=== PATIENT | female | born 1990 | race Caucasian/White ===

== ENCOUNTER 2017-08-29 05:17 | Emergency (ER) | payer OTHER ==
[~2017-08-29] VITALS: Ht 165.1 cm; Wt 56.7 kg
== END 2017-08-29 08:16 | disposition home or self-care (01) ==
LOC: ER 05:17
DX: S61.012A Laceration without foreign body of left thumb without damage to nail, initial encounter (principal); F17.200 Nicotine dependence, unspecified, uncomplicated; W26.0XXA Contact with knife, initial encounter
CPT/HCPCS: 12001; 99283

== ENCOUNTER → 2022-12-13 | Outpatient (CLI) | payer BC | END | disposition home or self-care (01) | LOC: LAB 17:20 → LAB SHORT 17:20 | DX: O09.93 Supervision of high risk pregnancy, unspecified, third trimester (principal) | CPT/HCPCS: 87081; 87150 ==

== ENCOUNTER 2023-01-06 18:21 | Inpatient (IN) | payer BC ==
[2023-01-06] VITALS (29 sets, daily range): BP systolic 66–182; BP diastolic 36–95
[~2023-01-06] VITALS: Ht 165.1 cm; Wt 86.3 kg
[2023-01-06 20:45] LABS: Hematocrit 34.4 % (33.0-51.0); Hemoglobin 11.4 g/dL (11.5-16.0); Mean Corpuscular HGB 29.2 pg (26.0-34.0); Mean Corpuscular HGB Conc 33.1 g/dL (31.5-36.5); Mean Corpuscular Volume 88 fL (80-100); Mean Platelet Volume 12.5 fL (9.1-12.4); Platelet Count 202 K/mm3 (150-400); RDW Coefficient Variation 14.2 % (11.7-14.2); RDW Standard Deviation 45.4 fL (35.1-46.3); Red Blood Cell Count 3.91 M/mm3 (3.80-5.20)
[2023-01-06 21:06] LABS: Albumin, Blood 2.3 g/dL (3.4-5.0); Albumin/Globulin Ratio 0.7 (0.8-1.8); Bilirubin, Total 0.2 mg/dL (0.1-1.0); Bun/Creatinine Ratio 19.5 (12.0-20.0); Calcium, Blood 8.4 mg/dL (8.5-10.1); Creatinine, Blood 0.56 mg/dL (0.40-1.00); Globulin, Blood 3.5 g/dL (2.2-4.0); Potassium, Blood 4.1 mmol/L (3.5-5.5); Total Protein, Blood 5.8 g/dL (6.4-8.2)
[2023-01-06 21:18] LABS: BAND PERCENT MAN 2 % (0-8); BASOPHILS PERCENT MAN 0 % (0-2); EOSINOPHILS PERCENT MAN 0 % (0-6); LYMPHOCYTES PERCENT MAN 11 % (21-46); MONOCYTES PERCENT MAN 4 % (4-13); MYELOCYTE PERCENT MAN 2 % (0-0); SEG NEUTROPHILS PERCENT MAN 81 % (41-73); TOTAL CELLS COUNTED 100
[2023-01-06 21:20] LABS: BASOPHILS ABSOLUTE AUTO 0.01 K/mm3 (0.00-0.23); BASOPHILS PERCENT AUTO 0 % (0-2); EOSINOPHILS ABSOLUTE AUTO 0.01 K/mm3 (0.00-0.68); EOSINOPHILS PERCENT AUTO 0 % (0-6); IMMATURE GRAN ABSOLUTE AUTO 0.14 K/mm3 (0.00-0.10); IMMATURE GRAN PERCENT AUTO 1 % (0-1); LYMPHOCYTES ABSOLUTE AUTO 1.31 K/mm3 (0.84-5.20); LYMPHOCYTES PERCENT AUTO 13 % (21-46); MONOCYTES ABSOLUTE AUTO 0.44 K/mm3 (0.16-1.47); MONOCYTES PERCENT AUTO 4 % (4-13); NEUTROPHILS ABSOLUTE AUTO 8.22 K/mm3 (1.96-9.15); NEUTROPHILS PERCENT AUTO 81 % (41-73); White Blood Cell Count 10.13 K/mm3 (4.00-11.30)
[2023-01-06] MEDS ORDERED: PNV TABS 20-11 EACH PO (21:37)
[2023-01-06] MEDS ORDERED: SERT25 PO (21:37)
[2023-01-06 21:41] LABS: Creatinine, Urine Random 59.7 mg/dL (27.00-270.00); Protein, Urine Random 15.8 mg/dL (0.0-11.9); Protein/Creat Ratio, Ur Random 0.3
[2023-01-07] VITALS (30 sets, daily range): BP systolic 95–141; BP diastolic 54–78
[2023-01-07] MEDS ORDERED: IBUP800 (07:32)
--- NOTE | 2023-01-07 10:39 | NUR ---
RT STOOD BY FOR DELIVERY DUE TO LIGHT MECONIUM. BABY WAS DELIVERED TO MOTHERS CHEST, DRIED AND STIMULATED AND STRONG CRY NOTED. RT EXCUSED, RN TO CALL RT IF NEEDED.
--- NOTE | 2023-01-07 17:16 | NUR ---
REPORT RECEIVED FROM BOLA DAVIS AND ASSUMED CARE OF PT AT 1630.
[2023-01-08 07:44] VITALS: BP 115/82
--- NOTE | 2023-01-08 13:54 | NUR ---
0129 DISCHARGED TO HOME WITH INSTRUCTIONS. PATIENT AND S/O VERBALIZED UNDERSTANDING
== END 2023-01-08 13:28 | disposition home or self-care (01) | DRG 807 ==
LOC: OBS 18:21 → BC 18:25 → OBS 20:13 → BC 20:14
PROVIDERS: ADMIT Advanced Practice Midwife
PROC: 10E0XZZ Delivery of Products of Conception, External Approach (ICD-10-PCS; principal; 2023-01-07)
PROC: 3E0R3BZ Introduction of Anesthetic Agent into Spinal Canal, Percutaneous Approach (ICD-10-PCS; 2023-01-07)
PROC: 00HU33Z Insertion of Infusion Device into Spinal Canal, Percutaneous Approach (ICD-10-PCS; 2023-01-07)
PROC: 0UQGXZZ Repair Vagina, External Approach (ICD-10-PCS; 2023-01-07)
DX: O48.0 Post-term pregnancy (principal); Z37.0 Single live birth; O99.344 Other mental disorders complicating childbirth; F41.8 Other specified anxiety disorders; O99.334 Smoking (tobacco) complicating childbirth; F17.210 Nicotine dependence, cigarettes, uncomplicated; O14.94 Unspecified pre-eclampsia, complicating childbirth; O13.4 Gestational [pregnancy-induced] hypertension without significant proteinuria, complicating childbirth; O77.0 Labor and delivery complicated by meconium in amniotic fluid; O70.0 First degree perineal laceration during delivery; Z3A.41 41 weeks gestation of pregnancy
CPT/HCPCS: 36415; 51702; 59025; 80053; 82570; 84156; 85025; 86850; 86900; 86901; A9270; J1885; J2270; J2590; J7120

== ENCOUNTER → 2023-03-02 | Outpatient (CLI) | payer BC ==
[~2023-03-02] MED LIST: IBUP800; PNV TABS 20-11 EACH PO; SERT25 PO
[2023-03-02 18:41] LABS: BASOPHILS ABSOLUTE AUTO 0.04 K/mm3 (0.00-0.23); BASOPHILS PERCENT AUTO 1 % (0-2); EOSINOPHILS ABSOLUTE AUTO 0.11 K/mm3 (0.00-0.68); EOSINOPHILS PERCENT AUTO 2 % (0-6); Hematocrit 41.1 % (33.0-51.0); Hemoglobin 13.6 g/dL (11.5-16.0); IMMATURE GRAN ABSOLUTE AUTO 0.01 K/mm3 (0.00-0.10); IMMATURE GRAN PERCENT AUTO 0 % (0-1); LYMPHOCYTES PERCENT AUTO 31 % (21-46); MONOCYTES ABSOLUTE AUTO 0.44 K/mm3 (0.16-1.47); MONOCYTES PERCENT AUTO 6 % (4-13); Mean Corpuscular HGB 28.9 pg (26.0-34.0); Mean Corpuscular HGB Conc 33.1 g/dL (31.5-36.5); Mean Corpuscular Volume 87 fL (80-100); Mean Platelet Volume 11.4 fL (9.1-12.4); NEUTROPHILS ABSOLUTE AUTO 4.22 K/mm3 (1.96-9.15); NEUTROPHILS PERCENT AUTO 60 % (41-73); Platelet Count 277 K/mm3 (150-400); RDW Coefficient Variation 12.7 % (11.7-14.2); RDW Standard Deviation 40.4 fL (35.1-46.3); Red Blood Cell Count 4.71 M/mm3 (3.80-5.20); White Blood Cell Count 7.02 K/mm3 (4.00-11.30)
[2023-03-04 00:06] LABS: CHLAMYDIA TRACHOMATIS, NAA Negative (Negative)
== END | disposition home or self-care (01) ==
LOC: LAB SHORT 16:57 → LAB 16:57
PROVIDERS: Advanced Practice Midwife
DX: Z11.3 Encounter for screening for infections with a predominantly sexual mode of transmission (principal); R53.83 Other fatigue
CPT/HCPCS: 82306; 84443; 85025; 87491; 87591

== ENCOUNTER 2024-10-16 12:52 | Observation (INO) | payer SELFPAY ==
[~2024-10-16] VITALS: Ht 165.1 cm; Wt 67.7 kg
[2024-10-16 14:08] LABS: Source, Urine Clean Catch
[2024-10-16 14:19] LABS: Appearance, Urine Clear (Clear); Bilirubin, Urine Neg (Neg); Blood, Urine 4+ (Neg); Color, Urine Yellow (P-Yellow); Glucose Qualitative, Urine Neg (Neg); Ketones, Urine Neg (Neg); Leukocyte Esterase, Urine Neg (Neg); Nitrite, Urine Neg (Neg); Protein, Urine 1+ (Neg); Specific Gravity, Urine 1.025 (1.003-1.022); Urobilinogen, Urine NORM (Normal)
[2024-10-16 14:33] LABS: Albumin, Blood 3.6 g/dL (3.4-5.0); Albumin/Globulin Ratio 1.3 (0.8-1.8); Bilirubin, Total 0.3 mg/dL (0.1-1.0); Bun/Creatinine Ratio 26.2 (12.0-20.0); Calcium, Blood 8.8 mg/dL (8.5-10.1); Creatinine, Blood 0.5 mg/dL (0.40-1.00); Globulin, Blood 2.8 g/dL (2.2-4.0); Potassium, Blood 4.3 mmol/L (3.5-5.5); Total Protein, Blood 6.4 g/dL (6.4-8.2)
[2024-10-16 14:42] LABS: Bacteria Not Seen /hpf; Mucus Light (0-Heavy); Squamous Epithelial Cells Not Seen /hpf (Few); White Blood Cells, Urine 0-2 /hpf (0-5)
[2024-10-16 15:20] LABS: BASOPHILS ABSOLUTE AUTO 0.06 K/mm3 (0.00-0.23); BASOPHILS PERCENT AUTO 1 % (0-2); EOSINOPHILS ABSOLUTE AUTO 0.18 K/mm3 (0.00-0.68); EOSINOPHILS PERCENT AUTO 2 % (0-6); Hematocrit 37.5 % (33.0-51.0); Hemoglobin 12.2 g/dL (11.5-16.0); IMMATURE GRAN ABSOLUTE AUTO 0.04 K/mm3 (0.00-0.10); IMMATURE GRAN PERCENT AUTO 0 % (0-1); LYMPHOCYTES ABSOLUTE AUTO 2.56 K/mm3 (0.84-5.20); LYMPHOCYTES PERCENT AUTO 26 % (21-46); MONOCYTES ABSOLUTE AUTO 0.63 K/mm3 (0.16-1.47); MONOCYTES PERCENT AUTO 6 % (4-13); Mean Corpuscular HGB Conc 32.5 g/dL (31.5-36.5); Mean Corpuscular Volume 92 fL (80-100); Mean Platelet Volume 10.7 fL (9.1-12.4); NEUTROPHILS PERCENT AUTO 65 % (41-73); Platelet Count 307 K/mm3 (150-400); RDW Coefficient Variation 11.8 % (11.7-14.2); RDW Standard Deviation 39.8 fL (35.1-46.3); Red Blood Cell Count 4.06 M/mm3 (3.80-5.20); White Blood Cell Count 9.97 K/mm3 (4.00-11.30)
[2024-10-16] MEDS ORDERED: Ketorolac Tromethamine 15mg Vial IV ONE (16:40)
[2024-10-16] MEDS ORDERED: CefTRIAXone Sodium 1,000 MG in NS 100 ML IV SCH (19:00)
[2024-10-16] MEDS ORDERED: MetroNIDAZOLE 500MG/NS 100 ml 100 ML IV SCH (19:00)
[2024-10-16 22:44] VITALS: BP 107/66
[2024-10-17] VITALS (13 sets, daily range): BP systolic 95–144; BP diastolic 55–92
[2024-10-17] MEDS ORDERED: NS 1,000 ML IV SCH (02:20)
--- NOTE | 2024-10-17 06:41 | NUR ---
SHIFT ASSESSMENT PATIENT WAS ADMITTED TO SURG FLOOR ROON 226 LAST NIGHT. PENDING APPY IN AM. ORIENTED TO ROOM AND CALL LIGHT. SL NOTED IN RIGHT AC, ENCOURAGED PT TO TRY NOT TO BENT ARM TOO MUCH OR IT WILL KINK THE CATH AND SHE WOUND NEED A NEW IV. PATIENT WENT FOR A WALK LAST NIGHT IN HALLS. PATIENT REPORTS MILD PAIN RLQ 1/10. PATIENT HAS NEVER HAD SURGERY AND VERY HEALTHY. NPO POST MIDNIGHT. PATIENT RESTED WELL T/O NOC. IVF STARTED AFTER GETING ORDER. FLAGYL GIVEN ORDERED. PT DENIED NEED FOR PAIN MEDICATIONS T/O NOC. NO ACUTE CHANGES.
[2024-10-17] MEDS ORDERED: Bupivacaine 0.5% HCl 5 MG/ML 30MLVIAL ONE (08:59)
--- NOTE | 2024-10-17 08:59 | NUR ---
PT HAS 20G IV TO RIGHT AC THAT FLUSHES WELL AND FLOWS TO GRAVITY.
[2024-10-17] MEDS ORDERED: propofoL 20 ML IV ONE (09:01)
[2024-10-17] MEDS ORDERED: FentaNYL Citrate 50 MCG/ML 2 ML Injection ONE ×3 (09:01→10:54)
--- NOTE | 2024-10-17 09:13 | NUR ---
PT TO DAY SURGERY AT APPROX 0850.
[2024-10-17] MEDS ORDERED: Morphine Sulfate 4 MG/1 ML Injection IV PRN (09:15)
[2024-10-17] MEDS ORDERED: Lidocaine HCl 1% 5 ML SYR INJ ONE (09:15)
--- NOTE | 2024-10-17 09:15 | NUR ---
PT PHONE PLACED IN PACU.
[2024-10-17] MEDS ORDERED: Albuterol 2.5 MG/3 ML VIAL INH PRN (09:20)
[2024-10-17] MEDS ORDERED: Ondansetron HCl 2 MG / ML 2ML Vial IV PRN (09:20)
[2024-10-17] MEDS ORDERED: HYDROmorphone HCl/Pf 1MG SYR IV PRN (09:20)
[2024-10-17] MEDS ORDERED: FentaNYL Citrate 50 MCG/ML 2 ML Injection IV PRN (09:20)
[2024-10-17] MEDS ORDERED: Ketorolac Tromethamine 30mg Vial IV PRN (09:35)
[2024-10-17] MEDS ORDERED: Dexamethasone Sod Phos 10 MG/ML 1ML VIAL ONE (09:37)
[2024-10-17] MEDS ORDERED: Ondansetron HCl 2 MG / ML 2ML Vial ONE (09:57)
[2024-10-17] MEDS ORDERED: Sugammadex Sodium 200 MG/2ML SDV (100 MG/ML) ONE (09:58)
[2024-10-17] MEDS ORDERED: Lactated Ringer's 1,000 ML IV SCH (10:00)
[2024-10-17] MEDS ORDERED: Ketorolac Tromethamine 30mg Vial ONE (10:54)
--- NOTE | 2024-10-17 11:29 | NUR ---
POST OP S/P LAP APPY. X3 LAP SITES TO ABD ARE CDI. PT AWAKE AND ALERT AND ABLE TO STAND FROM GURNEY TO GET INTO BED. PT REPORTS MINIMAL ABD PAIN 2/10. DENIES N/V. SLOWLY ATTEMPTING TO SIP ON WATER AND EAT JELLO. IVF INFUSING PER ORDERS. POST OP VSS AND IN PROGRESS. ENCOURAGED TO COUGH AND DEEP BREATHE. NOTIFIED SPOUSE CHELI OF STATUS. CALL LIGHT WITHIN REACH.
[2024-10-17] MEDS ORDERED: Acetaminophen 325 MG TABLET PO PRN (14:50)
--- NOTE | 2024-10-17 15:06 | NUR ---
DISCHARGE POST OP VSS. PT JOELLE REG DIET. NO N/V. AMBULATING INDEP. MINIMAL PAIN. VOIDING. PT AND SPOUSE EDUCATED ON AND RECIEVED PRINTED DISCHARGE INSTRUCTIONS AND VERBALIZED AN UNDERSTANDING. IV DC'D. NO NEW RX. PT GATHERING PERSONAL BELONGINGS. TO TAKE PT HOME.
== END 2024-10-17 16:24 | disposition home or self-care (01) ==
LOC: ER 12:52 → ERHOLD 12:53 → SURS 12:53
PROVIDERS: Physician Assistant; Student in an Organized Health Care Education/Training Program; Surgery; ADMIT Internal Medicine
PROC: 0DTJ4ZZ Resection of Appendix, Percutaneous Endoscopic Approach (ICD-10-PCS; principal; 2024-10-17 09:00)
DX: K35.80 Unspecified acute appendicitis (principal); K66.1 Hemoperitoneum; N83.8 Other noninflammatory disorders of ovary, fallopian tube and broad ligament; F41.9 Anxiety disorder, unspecified; F17.210 Nicotine dependence, cigarettes, uncomplicated
CPT/HCPCS: 74177; 76830; 76856; 80053; 81001; 81025; 84702; 85025; 88304; 96365-59; 96375; 96376; 99285-25; A9270; G0378; J0696; J1100; J1885; J2405; J2704; J3010; J7030; Q9967